=== PATIENT | male | born 1940 | race Caucasian/White ===

== ENCOUNTER 2018-01-20 01:01 | Emergency (ER) | payer MEDICARE, OTHER, SELFPAY ==
[2018-01-20] VITALS (8 sets, daily range): BP systolic 77–112; BP diastolic 55–71; PULSE 63–82; RESP 10–19; TEMP 36.1–36.4; O2SAT 96–99; BMI 26.5
--- NOTE | 2018-01-20 01:12 | ED.GIBLEED ---
HPI - GI Bleed General Chief complaint: GI Bleed Stated complaint: rectal bleeding Time Seen by Provider: 01/20/18 01:05 Source: patient and family Mode of arrival: ambulatory Limitations: no limitations History of Present Illness HPI Narrative: Patient presents to the emergency department this evening by private auto with his . He developed some abdominal cramping recently and then passed a large amount of bright red blood on the toilet. He denies the use of blood thinners. He is not dizzy nor weak or lightheaded. He denies chest pain or shortness of breath. He had a routine colonoscopy a few days ago was told to present to the emergency department if he developed any rectal bleeding MD complaint: gross hematochezia Onset (ago): hour(s) Severity: mild Relieving factors: none Exacerbating factors: none Associated symptoms: abdominal pain Treatments Prior to Arrival: none Related Data Home Medications Medication Instructions Recorded Confirmed ibuprofen 400 mg PO 1-2XD #0 03/06/17 01/20/18 Allergies Allergy/AdvReac Type Severity Reaction Status Date / Time No Known Allergies Allergy Uncoded 01/20/18 01:19 Review of Systems Review of Systems All systems reviewed & are unremarkable except as noted in HPI and below Constitutional Denies chills, Denies fever(s), Denies lethargy and Denies weakness Eyes Denies change in vision, Denies eye discharge, Denies irritation and Denies loss of vision ENT Ears, Nose, Mouth, and Throat: Denies change in voice, Denies neck pain and Denies sore throat Cardiovascular Denies chest pain, Denies irregular heart rhythm, Denies lightheadedness, Denies palpitations, Denies dyspnea, Denies dyspnea on exertion and Denies orthopnea Respiratory Denies cough, Denies dyspnea, Denies dyspnea on exertion and Denies wheezing Gastrointestinal Gastrointestinal: Denies abdominal pain, Reports hematochezia, Denies change in bowel habits, Reports change in stool character, Denies diarrhea, Denies nausea and Denies vomiting Genitourinary Denies hematuria, Denies flank pain, Denies urinary incontinence and Denies urinary urgency Musculoskeletal Denies neck pain Integumentary/Breasts Denies pruritus, Denies erythema, Denies rash and Denies wounds Neurologic Denies confusion, Denies loss of vision and Denies weakness Psychiatric Denies anxiety, Denies confusion, Denies depression, Denies homicidal ideation and Denies suicidal ideation Endocrine Denies palpitations Hematologic/Lymphatic Denies easy bruising Allergic/Immunologic Denies wheezing [facility] Surgical History Status post rotator cuff repair Exam Narrative Exam Narrative: Pleasant 77M in mild distress Initial Vital Signs Initial Vital Signs: Vital Signs Temperature 96.9 F L 01/20/18 01:17 Pulse Rate 82 01/20/18 01:17 Respiratory Rate 16 01/20/18 01:17 Blood Pressure 86/55 L 01/20/18 01:17 Pulse Oximetry 96 01/20/18 01:17 Const General: cooperative and well developed Nutritional Appearance: well nourished Orientation: alert, awake, oriented x3 and not confused HENMT Head: normocephalic and atraumatic Ears: external ears normal and TM's normal bilaterally Nose: external nose normal and No nasal discharge Face and sinus: sinuses nontender, face symmetric, no sinus tenderness and No dry mucous membranes Mouth: oral mucosae normal and moist mucous membranes Teeth and gingiva: dentition normal Throat: tonsils normal and uvula midline Resp Effort & Inspection: normal respiratory effort, able to speak in complete sentences, no respiratory distress and no use of accessory muscles Auscultation: clear to auscultation bilaterally, no rales, no rhonchi and no wheezes GI Inspection: non-distended Palpation: soft, no hepatosplenomegaly, No guarding, No pulsatile mass and No tender Auscultation: normal bowel sounds Rectal Exam: visual inspection normal, No fecal impaction, heme positive stool, No hemorrhoids and No laceration Back/Spine/Pelvis Back: No CVA tenderness Cervical Spine: cervical ROM normal and No pain with cervical ROM Thoracic/Lumbar Spine: thoracic and lumbar spine normal to inspection Skin General: no rashes or lesions noted, No jaundice and No petechiae Neuro General: alert, oriented x3, gait normal and no focal motor deficits Speech: speech normal Course Orders Ordered: ED Orders 01/20/18 01:30 Complete Blood Count AUTO DIFF Stat Comprehensive Metabolic Panel Stat Packed Cells Stat Partial Thromboplastin Time Stat Prothrombin Time INR Stat Type and Screen Stat 01/20/18 03:34 Hemoglobin and Hematocrit Stat 01/20/18 05:40 Hemoglobin and Hematocrit Stat Discontinued Medications Ondansetron HCl (Zofran) 4 mg IV NOW ONE Stop: 01/20/18 01:12 Last Admin: 01/20/18 01:48 Dose: 4 mg Pantoprazole Sodium (Protonix) 40 mg IV NOW ONE Stop: 01/20/18 01:12 Last Admin: 01/20/18 01:48 Dose: 40 mg Reevaluation(s) Reevaluation #1: Patient continues to rest comfortably. Has no ongoing bleeding. She states his systolic blood pressure is normally in the upper 90s and he is currently in the mid to upper 90s. He is not actively dizzy and denies abdominal pain. His initial H&H is stable at 13 and 39. Plan will be to repeat H&H in 4 hr and make a decision that point Time: 02:13 Reevaluation #2: Patient blood pressure and return to the 90s for a while but then slowly trickle back into the 70s. We did orthostatics and upon standing his heart rate went from his baseline upper 50s and lower 60s up to 115 and systolic blood pressure was in the 80s. He felt dizzy and lightheaded. Though initial H&H was stable I did ask that 1 unit packed red cells to be transfused and we perform H&H prior Reevaluation #3: patient asymptomatic. No ongoing bleeding. No longer orthostatic. BP 112, no change on standing. Awaiting 3rd and final H/H Time: 05:23 Consultations Consultation #1: call to [facility], Dr Ann. WE discussed history, physical and course during ED stay. Given duration of visit with no change in H/H and no ongoing bleeding as well as normalized vitals and lack of symptoms patient is safe to go home. He didn't given any specific follow up instructions with his group. Time: 06:16 Vital Signs - 8 hr 01/20/18 01:17 01/20/18 01:54 01/20/18 02:04 Temperature 96.9 F L Pulse Rate 82 66 68 Respiratory Rate 16 10 L 19 Blood Pressure 86/55 L Blood Pressure [Left Arm] 77/55 L 93/56 L Pulse Oximetry 96 96 97 01/20/18 03:41 01/20/18 04:00 01/20/18 05:10 Temperature 97.5 F L 97.5 F L 97.6 F Pulse Rate 67 63 68 Respiratory Rate 19 15 14 Blood Pressure 83/55 L Blood Pressure [Left Arm] 94/55 L 106/71 Pulse Oximetry 98 99 01/20/18 05:18 Temperature Pulse Rate 75 Respiratory Rate Blood Pressure Blood Pressure [Left Arm] 112/66 Pulse Oximetry MDM - GI Bleed Lab Data Result diagrams: 01/20/18 05:40 01/20/18 01:30 Lab Results 01/20/18 01/20/18 01/20/18 Range/Units 01:30 01:30 01:30 WBC 9.4 (4.5-11.0) X10^3/uL RBC 4.26 L (4.5-5.9) X10^6/uL Hgb 13.6 (13.5-17.5) g/dL Hct 39.6 L (41-53) % MCV 93.0 (80-100) fL MCH 31.9 (26-34) PG MCHC 34.3 (30-36) % RDW 13.2 (11.6-14.8) % Plt Count 257 (150-400) X10^3/uL Neut % (Auto) 56.1 (50-75) % Lymph % (Auto) 30.6 (25-40) % [place] % (Auto) 8.3 (3-14) % Eos % (Auto) 4.4 H (2-4) % Baso % (Auto) 0.6 (0-2) % Neut # (Auto) 5300 (6106-3910) /uL PT (10.1-12.7) SECONDS INR (0.9-1.3) APTT 24 L (26.4-36.2) SECONDS Sodium 140 (137-145) mmol/L Potassium 4.0 (3.4-5.1) mmol/L Chloride 103 (98-107) mmol/L Carbon Dioxide 25 (22-32) mmol/L BUN 23 H (9-20) mg/dL Creatinine 0.90 (0.66-1.25) mg/dL Estimated GFR > 60.0 (>60) mL/min BUN/Creatinine Ratio 25.6 H (6-22) Glucose 151 H (80-110) mg/dL Calcium 9.3 (8.4-10.2) mg/dL Total Bilirubin 0.5 (0.2-1.3) mg/dL AST 25 (17-59) IU/L ALT 26 (21-72) IU/L Alkaline Phosphatase 94 (38-126) U/L Total Protein 6.4 (6.3-8.2) g/dL Albumin 3.8 (3.5-5.0) g/dL Globulin 2.6 (1.7-4.1) g/dL Albumin/Globulin Ratio 1.5 (1.0-2.8) Blood Type Antibody Screen Crossmatch (AHG) 01/20/18 01/20/18 01/20/18 Range/Units 01:30 01:30 01:30 WBC (4.5-11.0) X10^3/uL RBC (4.5-5.9) X10^6/uL Hgb (13.5-17.5) g/dL Hct (41-53) % MCV (80-100) fL MCH (26-34) PG MCHC (30-36) % RDW (11.6-14.8) % Plt Count (150-400) X10^3/uL Neut % (Auto) (50-75) % Lymph % (Auto) (25-40) % [place] % (Auto) (3-14) % Eos % (Auto) (2-4) % Baso % (Auto) (0-2) % Neut # (Auto) (2703-2142) /uL PT 11.8 (10.1-12.7) SECONDS INR 1.1 (0.9-1.3) APTT (26.4-36.2) SECONDS Sodium (137-145) mmol/L Potassium (3.4-5.1) mmol/L Chloride (98-107) mmol/L Carbon Dioxide (22-32) mmol/L BUN (9-20) mg/dL Creatinine (0.66-1.25) mg/dL Estimated GFR (>60) mL/min BUN/Creatinine Ratio (6-22) Glucose (80-110) mg/dL Calcium (8.4-10.2) mg/dL Total Bilirubin (0.2-1.3) mg/dL AST (17-59) IU/L ALT (21-72) IU/L Alkaline Phosphatase (38-126) U/L Total Protein (6.3-8.2) g/dL Albumin (3.5-5.0) g/dL Globulin (1.7-4.1) g/dL Albumin/Globulin Ratio (1.0-2.8) Blood Type Cancelled B Positive Antibody Screen Cancelled Negative Crossmatch (AHG) See Detail 01/20/18 01/20/18 Range/Units 03:34 05:40 WBC (4.5-11.0) X10^3/uL RBC (4.5-5.9) X10^6/uL Hgb 12.7 L 13.7 (13.5-17.5) g/dL Hct 37.5 L 39.7 L (41-53) % MCV (80-100) fL MCH (26-34) PG MCHC (30-36) % RDW (11.6-14.8) % Plt Count (150-400) X10^3/uL Neut % (Auto) (50-75) % Lymph % (Auto) (25-40) % [place] % (Auto) (3-14) % Eos % (Auto) (2-4) % Baso % (Auto) (0-2) % Neut # (Auto) (4866-6578) /uL PT (10.1-12.7) SECONDS INR (0.9-1.3) APTT (26.4-36.2) SECONDS Sodium (137-145) mmol/L Potassium (3.4-5.1) mmol/L Chloride (98-107) mmol/L Carbon Dioxide (22-32) mmol/L BUN (9-20) mg/dL Creatinine (0.66-1.25) mg/dL Estimated GFR (>60) mL/min BUN/Creatinine Ratio (6-22) Glucose (80-110) mg/dL Calcium (8.4-10.2) mg/dL Total Bilirubin (0.2-1.3) mg/dL AST (17-59) IU/L ALT (21-72) IU/L Alkaline Phosphatase (38-126) U/L Total Protein (6.3-8.2) g/dL Albumin (3.5-5.0) g/dL Globulin (1.7-4.1) g/dL Albumin/Globulin Ratio (1.0-2.8) Blood Type Antibody Screen Crossmatch (AHG) Discharge Plan Departure Patient Disposition: Home, Self-Care Clinical Impression: Lower gastrointestinal hemorrhage Instructions: Gastrointestinal Bleeding Activity Restrictions/Additional Instructions: *You have been diagnosed with [ Rectal Bleed ] *What to do: *Continue to take medications as directed *Though you don't actively have a PCP please contact those listed below to see about being seen in follow up and establishing care. Please mention that you were seen in the Emergency Department and Dr. Cruz wanted you seen in follow up within the next 5-7 days. *Return to ER if you should have any new, worsening or concerning symptoms Prescriptions: No Action ibuprofen 200 MG tablet 400 mg PO 1-2XD Qty: 0 RF: 0 Referrals: Dequan Frias MD [Physician] - Mila Alvarado MD [Physician] - Jorje Jones MD [Physician] -
[2018-01-20] MEDS: ONDANSETRON 4 MG/2 ML INJ IV (01:48)
[2018-01-20] MEDS: PANTOPRAZOLE 40 MG VIAL IV (01:48)
[2018-01-20 01:49] LABS: INR 1.1 (0.9-1.3); Prothrombin Time 11.8 SECONDS (10.1-12.7)
[2018-01-20 01:54] LABS: Add Manual Diff / Slide Review NO; Alanine Aminotransferase 26 IU/L (21-72); Albumin 3.8 g/dL (3.5-5.0); Albumin Globulin Ratio 1.5 (1.0-2.8); Alkaline Phosphatase 94 U/L (38-126); Aspartate Aminotransferase 25 IU/L (17-59); BUN Creatinine Ratio 25.6 (6-22); Basophils Percent Auto 0.6 % (0-2); Bilirubin Total 0.5 mg/dL (0.2-1.3); Blood Urea Nitrogen 23 mg/dL (9-20); Calcium 9.3 mg/dL (8.4-10.2); Carbon Dioxide 25 mmol/L (22-32); Chloride 103 mmol/L (98-107); Eosinophils Percent Auto 4.4 % (2-4); Estimated Glomerular Filt Rate > 60.0 mL/min (>60); Globulin 2.6 g/dL (1.7-4.1); Glucose 151 mg/dL (80-110); HEMOLYSIS 32 (0-50); Hematocrit 39.6 % (41-53); Hemoglobin 13.6 g/dL (13.5-17.5); Lymphocytes Percent Auto 30.6 % (25-40); Mean Corpuscular HGB Conc 34.3 % (30-36); Mean Corpuscular Hemoglobin 31.9 PG (26-34); Monocytes Percent Auto 8.3 % (3-14); Neutrophils Absolute Auto 5300 /uL (3000-5900); Neutrophils Percent Auto 56.1 % (50-75); Platelet Count 257 X10^3/uL (150-400); Red Blood Cell Count 4.26 X10^6/uL (4.5-5.9); Red Cell Distribution Width 13.2 % (11.6-14.8); Sodium 140 mmol/L (137-145); Total Protein 6.4 g/dL (6.3-8.2); White Blood Cell Count 9.4 X10^3/uL (4.5-11.0)
[2018-01-20 01:59] LABS: PTT Partial Thromboplastin Tim 24 SECONDS (26.4-36.2)
[2018-01-20 03:40] LABS: Hematocrit 37.5 % (41-53); Hemoglobin 12.7 g/dL (13.5-17.5)
[2018-01-20 05:47] LABS: Hematocrit 39.7 % (41-53); Hemoglobin 13.7 g/dL (13.5-17.5)
== END 2018-01-20 06:53 | disposition home or self-care (01) ==
PROVIDERS: Emergency Provider Emergency Medicine; PCP Physician Assistant
DX: K92.2 Gastrointestinal hemorrhage, unspecified (principal)
CPT/HCPCS: 36415; 36430; 36591; 80053; 85014; 85018; 85025; 85610; 85730; 86850; 86900; 86901; 96374; 96375; 99283; 99284; P9016; C9113; J2405

== ENCOUNTER → 2024-07-28 14:31 | Outpatient (CLI) | payer MEDICARE, OTHER, SELFPAY ==
--- NOTE | 2024-07-28 14:35 | DI.RAD.S_ITS ---
PROCEDURE: XR CHEST 2V INDICATIONS: Rhonchi, crackles, FAUST, cough TECHNIQUE: 2 views of the chest were acquired. COMPARISON: None. FINDINGS: Surgical changes and devices: None. Lungs and pleura: Increased vascularity. Mediastinum: Mediastinal contours are normal. Heart size is enlarged. Bones and chest wall: No suspicious bony abnormalities. Soft tissues appear unremarkable. IMPRESSION: Increased vascularity consistent with edema. Dictated by: Nohelia Das M.D. on 07/28/2024 at 15:42 Approved by: Nohelia Das M.D. on 07/28/2024 at 15:46
== END ==
PROVIDERS: Referring Provider Physician Assistant Surgical; Visit Provider Physician Assistant Surgical
DX: I51.7 Cardiomegaly (principal); R05.9 Cough, unspecified; R06.09 Other forms of dyspnea
CPT/HCPCS: 71046